=== PATIENT | female | born 2000 | race Caucasian/White ===

== ENCOUNTER 2021-03-23 12:44 | Emergency (ER) | payer OTHER ==
[~2021-03-23] VITALS: Ht 162.6 cm; Wt 61.4 kg
[2021-03-23 13:22] VITALS: TEMP 98.5
[2021-03-23] MEDS ORDERED: ORILISSA150 MG PO (13:34)
[2021-03-23] MEDS ORDERED: EUTHYROX25 MCG PO (13:34)
[2021-03-23] MEDS ORDERED: GLUCOPHAGE500 MG/TAB PO (13:34)
[2021-03-23] MEDS ORDERED: WELLBUTRIN XL300 M1 PO (13:35)
[2021-03-23] MEDS ORDERED: MINOCYCLIN100 MG/CAP PO (13:35)
[2021-03-23] MEDS ORDERED: ALDACTONE 100M100 MG PO (13:36)
[2021-03-23] MEDS ORDERED: LOESTRIN 1/20 28 DAY PO (13:36)
[2021-03-23 13:57] LABS: BASO % 0.4 % (0.0-2.0); EOS % 0.6 % (0-4.0); GRAN # 4.6 (1.4-6.5); GRAN % 64.8 % (42.2-75.2); HEMATOCRIT 43.6 % (37.0-47.0); HEMOGLOBIN 14.5 g/dl (12.5-16.0); LYMPH # 1.9 (1.2-3.4); LYMPH % 25.9 % (20.0-51.0); MEAN CELL VOLUME 89 fl (80.0-100.0); MEAN CORPUSCULAR HEMOGLOBIN 30 pg (27.0-31.0); MEAN CORPUSCULAR HGB CONC 33 g/dl (33.0-37.0); MEAN PLATELET VOLUME 10.8 fl (7.4-10.4); MONO # 0.6 (0.1-0.6); PLATELET COUNT 251 K/mm3 (130-400); REDCELL DISTRIBUTION WIDTH-CV 13.7 % (11.5-14.5)
[2021-03-23 14:08] LABS: ALBUMIN 4.2 gm/dL (3.5-5.0); BILIRUBIN,TOTAL 0.6 mg/dL (0.0-1.0); C-REACTIVE PROTEIN 0.7 mg/dL (0.0-0.9); CALCIUM 9.8 mg/dL (8.4-10.2); CREATININE, serum 1.15 (0.52-1.25); POTASSIUM 4.3 mmol/L (3.4-5.0)
[2021-03-23 14:22] LABS: COLLECTION METHOD CLEAN CATCH
[2021-03-23 14:33] LABS: MUCOUS Present /lpf; PH 5 (5-8); URINE APPEARANCE Cloudy; URINE BACTERIA Rare /hpf; URINE BILIRUBIN Negative (NEGATIVE); URINE BLOOD Negative (NEGATIVE); URINE COLOR Amber; URINE GLUCOSE Negative (NEGATIVE); URINE KETONE Trace (NEGATIVE); URINE LEUKOCYTE ESTERASE Negative (NEGATIVE); URINE NITRATE Negative (NEGATIVE); URINE PROTEIN(semi-quant) 1+ (NEGATIVE); URINE RBC 0-2 /hpf
[2021-03-23 14:34] LABS: PROLACTIN 15.6 ng/mL (3.0-18.6)
[2021-03-23 16:04] VITALS: BP 112/73; PULSE 95
== END 2021-03-23 16:06 | disposition home or self-care (01) ==
LOC: COL.ER 12:44
PROVIDERS: Nurse Practitioner
DX: R55 Syncope and collapse (principal)
CPT/HCPCS: J7030